=== PATIENT | female | born 1955 | race Caucasian/White ===

== ENCOUNTER 2017-02-21 21:40 | Emergency (ER) | payer OTHER ==
[~2017-02-21] VITALS: Ht 162.6 cm; Wt 74.8 kg
[~2017-02-21 21:40] MED LIST: ACET325T96 PO; PRED10TA PO
[2017-02-21 21:44] VITALS: TEMP 36.6; Ht 162.6 cm; Wt 74.8 kg
[2017-02-21] MEDS ORDERED: ALBUT/IPRATROP 3MG/0.5MG NEB 3 ML VIAL INH STA (23:03)
[2017-02-21] MEDS ORDERED: METHYLPREDNISOLONE 125 MG VIAL IV STA (23:03)
[2017-02-21 23:20] VITALS: PULSE 64; O2SAT 96
[2017-02-21 23:24] VITALS: O2SAT 98
[2017-02-21 23:45] LABS: BASO % 0.1 %; BASO ABS # 0.02 K/uL (0-0.2); COMPLETE YES; EOS % 0.2 %; HEMATOCRIT 44.5 % (37-47); IG% 0.3 %; LYMPH % 23.2 %; LYMPH ABS # 3.31 K/uL (1.2-3.4); MEAN CELL VOLUME 91.2 fL (80-100); MEAN CORPUSCULAR HEMOGLOBIN 29.7 pg (25-34); MEAN CORPUSCULAR HGB CONC 32.6 g/dl (32-36); MEAN PLATELET VOLUME 9.9 fL (7.4-10.4); MONO % 9.6 %; NEUT % 66.6 %; PLATELET COUNT 358 K/uL (130-400); RED BLOOD COUNT 4.88 M/uL (4.2-5.4); WHITE BLOOD COUNT 14.27 K/uL (4.8-10.8)
[2017-02-22] MEDS ORDERED: MONT1TAB5 PO (00:01)
[2017-02-22 00:09] LABS: INR 0.9 (0.9-1.1); PROTHROMBIN TIME (PATIENT) 9.8 SECONDS (9.0-12.0)
[2017-02-22 00:29] LABS: BLOOD UREA NITROGEN 13 mg/dl (7-18); BUN/CREATININE RATIO 14.6 (10-20); CALCIUM 8.4 mg/dl (8.5-10.1); CARBON DIOXIDE 27 mmol/L (21-32); CHLORIDE 108 mmol/L (98-107); CREATININE 0.87 mg/dl (0.60-1.20); GLUCOSE 98 mg/dl (70-99); POTASSIUM 4.1 mmol/L (3.5-5.1); SODIUM 141 mmol/L (136-145)
[2017-02-22 00:55] VITALS: BP 107/59; PULSE 98; O2SAT 98
--- NOTE | 2017-02-22 01:05 | EMERGENCY ROOM VISIT NOTE ---
History First contact with patient: 22:32 Chief Complaint: SHORTNESS OF BREATH Stated Complaint: SOB Nursing Triage Summary: c/o SOB. seen at PCP. No relief with steroids and inhalers History of Present Illness The patient is a 61 year old female who presents to the Emergency Room with complaints of shortness of breath. The patient states that she has had increased shortness of breath over the past 4-5 days. She has a history of atypical asthma and has occasional flareups of this. She reports that she has had increased shortness of breath with exertion, but at times does have shortness of breath at rest. She saw a provider and her primary care provider' s office 2 days ago who gave her an injection of 80 mg Solu-Medrol and a DuoNeb treatment. She was prescribed prednisone and Singulair which she has been taking as prescribed. She has been using nebulizers daily for the past 2 days. She states this feels similar to previous asthma flareups. She reports chest pressure, but states this has been ongoing for 2 days and is also normal for her asthma flareups. She also reports she has a history of autoimmune disease and previously took chronic steroids for several years. She denies chest pain. She denies cough or fevers. She reports a history of stroke. Review of Systems A complete 10 point review of systems was reviewed with the patient with pertinent positives and negatives as per history of present illness. All else were negative. Past Medical/Surgical History Medical Problems: (1) Asthma (2) Autoimmune disorder Social History Smoking Status: Never Smoker Alcohol Use: occasionally Marital Status: Housing Status: lives with family Current/Historical Medications Scheduled Montelukast Sodium (Montelukast Sodium), 10 MG PO DAILY Prednisone (Prednisone), 10 MG PO UD Scheduled PRN Acetaminophen Tab (Tylenol), 650 MG PO Q6 PRN for Pain or Fever Physical Exam Vital Signs Date Time Temp Pulse Resp B/P (MAP) Pulse Ox O2 Delivery O2 Flow Rate FiO2 02/22/17 00:55 98 18 107/59 98 Room Air 02/21/17 23:28 65 22 129/79 99 Nebulizer 02/21/17 23:24 98 02/21/17 23:20 64 16 96 Room Air 02/21/17 22:17 Room Air 02/21/17 22:07 75 02/21/17 21:44 36.6 68 22 138/82 96 Room Air Physical Exam VITALS: Vitals are noted on the nurse's note and reviewed by myself. Vital signs stable. GENERAL: This is a 61-year-old female, in no acute distress, nondiaphoretic, well-developed well-nourished. SKIN: The skin was without rashes. HEAD: Normocephalic atraumatic. EARS: External auditory canals clear, tympanic membranes pearly dunne without erythema or effusion bilaterally. EYES: Pupils equal round and reactive to light and accommodation. Conjunctivae without injection, sclerae without icterus. MOUTH: Mucous membranes moist. Tonsils are not enlarged. Pharynx without erythema or exudate. NECK: Supple without nuchal rigidity. No lymphadenopathy. HEART: Regular rate and rhythm without murmurs gallops or rubs. LUNGS: Breath sounds slightly decreased throughout all lung alba. No retractions or accessory muscle use. NEURO: Patient was alert and oriented to person place and time. Medical Decision & Procedures ER Provider Diagnostic Interpretation: CHEST X-RAY: No airspace consolidation. Cardiac silhouette normal. No bony abnormalities. Laboratory Results 02/21/17 23:20 Red Blood Count 4.88, Mean Corpuscular Volume 91.2, Mean Corpuscular Hemoglobin 29.7, Mean Corpuscular Hemoglobin Concent 32.6, Mean Platelet Volume 9.9, Neutrophils (%) (Auto) 66.6, Lymphocytes (%) (Auto) 23.2, Monocytes (%) (Auto) 9.6, Eosinophils (%) (Auto) 0.2, Basophils (%) (Auto) 0.1, Neutrophils # (Auto) 9.50, Lymphocytes # (Auto) 3.31, Monocytes # (Auto) 1.37, Eosinophils # (Auto) 0.03, Basophils # (Auto) 0.02 02/21/17 23:20 Test 02/21/17 23:20 White Blood Count 14.27 K/uL (4.8-10.8) Red Blood Count 4.88 M/uL (4.2-5.4) Hemoglobin 14.5 g/dL (12.0-16.0) Hematocrit 44.5 % (37-47) Mean Corpuscular Volume 91.2 fL (80-100) Mean Corpuscular Hemoglobin 29.7 pg (25-34) Mean Corpuscular Hemoglobin Concent 32.6 g/dl (32-36) Platelet Count 358 K/uL (130-400) Mean Platelet Volume 9.9 fL (7.4-10.4) Neutrophils (%) (Auto) 66.6 % Lymphocytes (%) (Auto) 23.2 % Monocytes (%) (Auto) 9.6 % Eosinophils (%) (Auto) 0.2 % Basophils (%) (Auto) 0.1 % Neutrophils # (Auto) 9.50 K/uL (1.4-6.5) Lymphocytes # (Auto) 3.31 K/uL (1.2-3.4) Monocytes # (Auto) 1.37 K/uL (0.11-0.59) Eosinophils # (Auto) 0.03 K/uL (0-0.5) Basophils # (Auto) 0.02 K/uL (0-0.2) RDW Standard Deviation 43.5 fL (36.4-46.3) RDW Coefficient of Variation 13.1 % (11.5-14.5) Immature Granulocyte % (Auto) 0.3 % Immature Granulocyte # (Auto) 0.04 K/uL (0.00-0.02) Prothrombin Time 9.8 SECONDS (9.0-12.0) Prothromb Time International Ratio 0.9 (0.9-1.1) Activated Partial Thromboplast Time 25.2 SECONDS (21.0-31.0) Partial Thromboplastin Ratio 1.0 D-Dimer < 190 ug/L FEU (0-500) Anion Gap 6.0 mmol/L (3-11) Est Creatinine Clear Calc Drug Dose 68.1 ml/min Estimated GFR () 83.9 Estimated GFR (Non- 72.4 BUN/Creatinine Ratio 14.6 (10-20) Calcium Level 8.4 mg/dl (8.5-10.1) Troponin I < 0.015 ng/ml (0-0.045) Medications Administered Medications (Trade) Dose Ordered Sig/Jt Route Start Time Stop Time Status Last Admin Dose Admin Methylprednisolone Sodium Succinate (Solu-Medrol IV) 125 mg NOW STAT IV 02/21/17 23:03 02/21/17 23:04 DC 02/21/17 23:24 125 MG Albuterol/ Ipratropium (Duoneb) 12 ml NOW STAT INH 8/30/17 23:03 02/21/17 23:04 DC 02/21/17 23:20 12 ML Medical Decision Differential diagnosis includes pneumonia, pneumothorax, pulmonary embolism, asthma exacerbation, malignancy, among others. The patient is a 61-year-old female who presents today complaining of shortness of breath. Patient has a history of asthma and states this is similar to previous flareups. Laboratory unremarkable. D-dimer is not elevated. Patient was treated with a DuoNeb treatment and 125 mg Solu-Medrol with significant relief of her symptoms. O2 sats word near 100%. She is afebrile and not tachycardic. She was instructed to continue the prednisone and follow up as needed. Based on the patient's presentation and work up, I feel the patient is stable for outpatient treatment. The patient was educated to return to the emergency department for any worsening of their current condition or new/concerning symptoms. She will follow up with her PCP. Medication Reconcilliation Current Medication List: was personally reviewed by me Blood Pressure Screening Patient's blood pressure: Normal blood pressure Impression Primary Impression: Shortness of breath Departure Information Dispostion Home / Self-Care Condition GOOD Referrals Randall Lara M.D. (PCP) Patient Instructions My [facility] Additional Instructions Continue your medications as prescribed. Follow-up with your primary care provider for further evaluation and treatment. Return to the emergency department with any worsening shortness of breath or other new/concerning symptoms.
--- NOTE | 2017-02-22 06:33 | DIAGNOSTIC IMAGING REPORT ---
CHEST 2 VIEWS ROUTINE CLINICAL HISTORY: Shortness of breath. COMPARISON STUDY: Chest radiograph and chest CT May 31, 2014. FINDINGS: Lung volumes are normal. No pneumothorax or pleural effusion was identified. Pulmonary vascularity is normal. There is no consolidation to suggest pneumonia. Cardiomediastinal silhouette is normal. The appearance of the chest is unchanged. IMPRESSION: No acute cardiopulmonary findings. Electronically signed by: David Stacy M.D. 02/22/2017 6:31 AM Dictated Date/Time: 02/22/2017 6:30 AM
== END 2017-02-22 01:18 | disposition home or self-care (01) ==
LOC: C.EDB 21:41 → C.EDA 02-22 01:18
DX: R06.02 Shortness of breath (principal); J45.909 Unspecified asthma, uncomplicated; M35.9 Systemic involvement of connective tissue, unspecified; Z79.899 Other long term (current) drug therapy

== ENCOUNTER 2017-07-11 12:06 | Observation (INO) | payer OTHER ==
[~2017-07-11] VITALS: Ht 162.6 cm; Wt 73.1 kg
[~2017-07-11 12:06] MED LIST changes: +MONT1TAB5 PO
[2017-07-11] MEDS ORDERED: VNTHFA/IN INH (12:29)
[2017-07-11] MEDS ORDERED: CETI10TA10 PO (12:29)
[2017-07-11] MEDS ORDERED: ONDANSETRON INJ 2 MG/ML 2 ML VIAL IV STA (12:44)
[2017-07-11] MEDS ORDERED: SODIUM CHLORIDE 0.9% 1000ML 1,000 ML IV STA (12:44)
[2017-07-11] MEDS: NITROGLYCERIN 0.4 MG SL PER TAB CHARGE SL PRN ×2 (12:57→14:27)
[2017-07-11 13:00] LABS: BASO % 0.5 %; BASO ABS # 0.04 K/uL (0-0.2); EOS % 1.4 %; EOS ABS # 0.11 K/uL (0-0.5); HEMATOCRIT 41.4 % (37-47); HEMOGLOBIN 13.8 g/dL (12.0-16.0); LYMPH % 40.4 %; LYMPH ABS # 3.09 K/uL (1.2-3.4); MEAN CELL VOLUME 91.8 fL (80-100); MEAN CORPUSCULAR HEMOGLOBIN 30.6 pg (25-34); MEAN CORPUSCULAR HGB CONC 33.3 g/dl (32-36); MEAN PLATELET VOLUME 10.2 fL (7.4-10.4); MONO % 8.9 %; MONO ABS # 0.68 K/uL (0.11-0.59); NEUT % 48.8 %; NEUT ABS # 3.73 K/uL (1.4-6.5); PLATELET COUNT 352 K/uL (130-400); RED CELL DISTRIBUTION WIDTH CV 13.1 % (11.5-14.5); RED CELL DISTRIBUTION WIDTH SD 43.8 fL (36.4-46.3); WHITE BLOOD COUNT 7.65 K/uL (4.8-10.8)
--- NOTE | 2017-07-11 13:12 | DIAGNOSTIC IMAGING REPORT ---
CHEST ONE VIEW PORTABLE CLINICAL HISTORY: Atypical chest pain COMPARISON STUDY: 02/21/2017 FINDINGS: The heart is normal in size. There is no failure. There is no lobar consolidation. There are no pleural effusions. There is no pneumothorax. Wispy left basilar opacities are likely atelectatic[ IMPRESSION: No active disease in the chest. Electronically signed by: Jignesh Lopez M.D. 07/11/2017 1:10 PM Dictated Date/Time: 07/11/2017 1:10 PM
[2017-07-11 13:22] LABS: ALT/SGPT 32 U/L (12-78); BLOOD UREA NITROGEN 10 mg/dl (7-18); CALCIUM 8.9 mg/dl (8.5-10.1); CARBON DIOXIDE 24 mmol/L (21-32); GLUCOSE 92 mg/dl (70-99); LIPASE 185 U/L (73-393); POTASSIUM 3.7 mmol/L (3.5-5.1); SODIUM 139 mmol/L (136-145)
[2017-07-11 13:28] LABS: ALKALINE PHOSPHATASE 58 U/L (45-117); AST/SGOT 30 U/L (15-37); CKMB 1.9 ng/ml (0.5-3.6); TOTAL PROTEIN 6.9 gm/dl (6.4-8.2)
[2017-07-11] MEDS ORDERED: ACETAMINOPHEN 325 MG TAB PO PRN (14:45)
[2017-07-11] MEDS ORDERED: ONDANSETRON INJ 2 MG/ML 2 ML VIAL IV PRN (14:45)
[2017-07-11] MEDS ORDERED: POLYETHYLENE (MIRALAX) 17 GM PACK PO PRN (14:45)
[2017-07-11 14:57] VITALS: O2SAT 95; Ht 162.6 cm; Wt 73.1 kg
[2017-07-11 15:11] VITALS: O2SAT 95
--- NOTE | 2017-07-11 15:24 | History and Physical ---
History & Physical Date & Time of Service: Jul 11, 2017 at 15:07 Chief Complaint: Chest Pain Primary Care Physician: Randall Lara M.D. History of Present Illness Source: patient This is a 61 yo F with PMHx of Lupus, mild asthma, recent GI flu which lasted 2 weeks and since has resolve, second hand smoke exposure as a child. Patient reports she was at work this morning around 10 AM and was sleeping outside walkway when she abruptly experienced substernal chest pain which radiated to her right shoulder, then radiated to the back between her shoulder blades. Patient notes that her pain lasted for only a few minutes, but felt a "generalized feeling of illness". She went inside and sat down, and reports having nausea, lightheadedness and feeling slightly dizzy which lasted one hour. The patient took 2 full dose aspirin, then had a coworker drive her to the ER. The patient has taken 2 nitroglycerin tablets which had significantly improved her pain since being in the ER. Patient reports her chest pain is currently resolved. She does report previously lupus flares have presented like this with a hoarser, and lower toned voice. She reports even with her mild asthma her lung typically are clear. Here in the ER, initial troponin is negative. EKG is without any findings of ischemia or ST wave inversions. Chest x-ray is without abnormal findings. All other labs are WNL. VSS. Past Medical/Surgical History Medical Problems: (1) Asthma (2) Autoimmune disorder (3) Chest pain (4) Lupus (systemic lupus erythematosus) Family History Father age 75 from COPD, chronic alcoholic Mother at age 69 from [place] Brother at age 41 from an [place] Social History Smoking Status: Never Smoker Smokeless Tobacco Use: No Alcohol Use: none Marital Status: Housing status: lives alone Occupational Status: employed Allergies Coded Allergies: Shellfish Allergy (Verified Allergy, Severe, ANAPHYLAXIS, 07/11/17) Iodine (Unverified Allergy, Unknown, ., 07/11/17) Codeine (Verified Adverse Reaction, Intermediate, nausea, 07/11/17) Home Medications Scheduled Cetirizine Hcl (Zyrtec), 10 MG PO DAILY Montelukast Sodium (Montelukast Sodium), 10 MG PO DAILY Scheduled PRN Albuterol Hfa (Ventolin Hfa), 2-4 PUFFS INH Q6H PRN for SOB/Wheezing Review of Systems Constitutional: No fever, sweats or chills Eyes: No diplopia, no worsening or blurred vision ENT: normal hearing, no trouble swallowing Respiratory: See history of present illness Cardiovascular: See history of present illness Abdomen: No pain, nausea, vomiting, diarrhea or constipation Musculoskeletal: No joint pain, calf pain, swelling Neurologic: No weakness, numbness/tingling, or balance problems Psychiatric: No anxiety or depression Skin: No rash or itch Physical Exam Vital Signs Date Time Temp Pulse Resp B/P (MAP) Pulse Ox O2 Delivery O2 Flow Rate FiO2 07/11/17 14:19 69 16 112/80 95 Room Air 07/11/17 13:07 72 16 131/76 96 Room Air 07/11/17 12:58 96 Room Air 07/11/17 12:28 77 07/11/17 12:26 98 Room Air 07/11/17 12:12 36.8 66 20 139/85 98 General: awake, alert, no apparent distress Head: Normocephalic, atraumatic ENT: PERRL, EOMI, no pharyngeal exudate, mucous membranes moist Chest: Clear to auscultation, on room air, no adventitious breath sounds Cardiac: No chest tenderness with palpation, Regular rate and rhythm, no murmur , no JVD, normal peripheral pulses, good capillary refill Abdominal: NABS x 4 quadrants, soft, nontender to palpation, no rebound, guarding or tenderness Extremities: Normal inspection, no peripheral edema or erythema, calfs nontender to palpation Psych: Normal mood and affect Neuro: AAO x 3, strength intact bilaterally and related 5/5, no motor deficits, speech is clear, no peripheral sensory deficits Diagnostics Laboratory Results Results Past 24 Hours Test 07/11/17 12:30 Range/Units White Blood Count 7.65 4.8-10.8 K/uL Red Blood Count 4.51 4.2-5.4 M/uL Hemoglobin 13.8 12.0-16.0 g/dL Hematocrit 41.4 37-47 % Mean Corpuscular Volume 91.8 80-100 fL Mean Corpuscular Hemoglobin 30.6 25-34 pg Mean Corpuscular Hemoglobin Concent 33.3 32-36 g/dl Platelet Count 352 130-400 K/uL Mean Platelet Volume 10.2 7.4-10.4 fL Neutrophils (%) (Auto) 48.8 % Lymphocytes (%) (Auto) 40.4 % Monocytes (%) (Auto) 8.9 % Eosinophils (%) (Auto) 1.4 % Basophils (%) (Auto) 0.5 % Neutrophils # (Auto) 3.73 1.4-6.5 K/uL Lymphocytes # (Auto) 3.09 1.2-3.4 K/uL Monocytes # (Auto) 0.68 0.11-0.59 K/uL Eosinophils # (Auto) 0.11 0-0.5 K/uL Basophils # (Auto) 0.04 0-0.2 K/uL RDW Standard Deviation 43.8 36.4-46.3 fL RDW Coefficient of Variation 13.1 11.5-14.5 % Immature Granulocyte % (Auto) 0.0 % Immature Granulocyte # (Auto) 0.00 0.00-0.02 K/uL Sodium Level 139 136-145 mmol/L Potassium Level 3.7 3.5-5.1 mmol/L Chloride Level 105 98-107 mmol/L Carbon Dioxide Level 24 21-32 mmol/L Anion Gap 10.0 3-11 mmol/L Blood Urea Nitrogen 10 7-18 mg/dl Creatinine 0.80 0.60-1.20 mg/dl Estimated GFR () 92.9 Estimated GFR (Non- 80.1 BUN/Creatinine Ratio 12.5 10-20 Random Glucose 92 70-99 mg/dl Calcium Level 8.9 8.5-10.1 mg/dl Total Bilirubin 0.3 0.2-1 mg/dl Direct Bilirubin < 0.1 0-0.2 mg/dl Aspartate Amino Transf (AST/SGOT) 30 15-37 U/L Alanine Aminotransferase (ALT/SGPT) 32 12-78 U/L Alkaline Phosphatase 58 45-117 U/L Total Creatine Kinase 59 26-192 U/L Creatine Kinase MB 1.9 0.5-3.6 ng/ml Creatine Kinase MB Ratio 3.2 0-3.0 Troponin I < 0.015 0-0.045 ng/ml Total Protein 6.9 6.4-8.2 gm/dl Albumin 4.0 3.4-5.0 gm/dl Lipase 185 73-393 U/L Diagnostic Radiology CHEST ONE VIEW PORTABLE CLINICAL HISTORY: Atypical chest pain COMPARISON STUDY: 02/21/2017 FINDINGS: The heart is normal in size. There is no failure. There is no lobar consolidation. There are no pleural effusions. There is no pneumothorax. Wispy left basilar opacities are likely atelectatic[ IMPRESSION: No active disease in the chest. Electronically signed by: Jignesh Lopez M.D. 07/11/2017 1:10 PM Dictated Date/Time: 07/11/2017 1:10 PM The status of this report is Signed. EKG Normal sinus rhythm Normal ECG When compared with ECG of 11-JUL-2017 12:56, (unconfirmed) No significant change was found Vent. rate 69 BPM RI interval 178 ms QRS duration 80 ms QT/QTc 406/435 ms P-R-T axes 48 20 41 Impression Assessment and Plan This is a 61 yo F with PMHx of Lupus, mild asthma, recent GI flu which lasted 2 weeks and since has resolve, second hand smoke exposure as a child. Patient reports she was at work this morning around 10 AM and was sleeping outside walkway when she abruptly experienced substernal chest pain which radiated to her right shoulder, then radiated to the back between her shoulder blades. Patient notes that her pain lasted for only a few minutes, but felt a "generalized feeling of illness". She went inside and sat down, and reports having nausea, lightheadedness and feeling slightly dizzy which lasted one hour. Chest pain, substernal and atypical - Admit to telemetry for observation - Initial troponin is negative, trending 2 more sets - Echo ordered, if all troponins are negative then stress echo in the morning - 1" Nitro paste ordered Q6H - EKGs reviewed as above and negative for any ST wave inversion or signs of ischemia - Patient has strong family history with mother who from [place] at age 69, and brother who at age 41 of [place] Systemic lupus erythematosus - Patient has been off chronic steroids 6 years, reports that since being postmenopausal her symptoms for lymphocytic significantly improved - Most recent flare was last fall she experienced worsening shortness of breath , chest tightness however this presentation is different. Mild asthma - Will try solumedrol 80 mcg now to assess response. Possible that this is an inflammatory response - will let the team to determine if further Solu-Medrol or prednisone taper should be continued. DVT PPI ask: Higinio SCDs, lovenox CODE STATUS: Full code Disposition: Patient from home, no needs anticipated i personally examined pt and verified all trujillo points w Robbie Willsleia PAC feeling like it relates to her asthma vitals noted nad breathing unlabored no pallor or icterus cp - fabiola asthma related, but w family hx r/o acs - enzymes, stress echo Level of Care Telemetry Resuscitation Status FULL RESUSCITATION VTE Prophylaxis VTE Risk Assessment Done? Y/N: Yes Risk Level: Low
[2017-07-11] MEDS ORDERED: IV FLUIDS COMPLETED PRN (15:30)
[2017-07-11 16:14] VITALS: BP 107/61; PULSE 72; TEMP 36.9; O2SAT 94
[2017-07-11] MEDS ORDERED: METHYLPREDNISOLONE IV 80 MG in SYRINGE 0 ML IV STA (16:34)
--- NOTE | 2017-07-11 17:37 | ECHOCARDIOGRAM REPORT ---
*NOTICE TO RECEIVING CONSTITUTION PARTY AGENCY This information is strictly Confidential and protected under [place] law. [place] law prohibits you from making any further disclosure of this information unless further disclosure is expressly permitted by the written consent of the person to whom it pertains or is authorized by law. A general authorization for the release of medical or other information is not sufficient for this purpose. Hospital accepts no responsibility if the information is made available to any other person, INCLUDING THE PATIENT. Interpretation Summary * Name: LA NENA KOHLI Study Date: 07/11/2017 03:03 PM BP: 112/80 mmHg * Patient Location: [facility] HR: 69 * : 1955 (M/d/yyyy) Gender: Female Height: 64 in * Age: 61 yrs Ethnicity: CA Weight: 163 lb * Ordering Physician: Stephanie Sow * Performed By: Joseph Boston RCS * * Reason For Study: CHEST PAIN * BSA: 1.8 m2 * -- Conclusions -- * 1. Normal LV size. Normal LV wall thickness. * 2. Normal LV systolic function. LVEF 60-65%. No regional wall motion abnormalities. * 3. Normal RV size and function. * 4. No significant valvular pathology. * 5. Normal estimated PA and RA pressures. * 6. No prior studies for comparison. Procedure Details * A complete two-dimensional transthoracic echocardiogram was performed (2D, M-mode, Doppler and color flow Doppler). Left Ventricle * The left ventricle is grossly normal size. * There is normal left ventricular wall thickness. * Ejection Fraction = 60-65%. Right Ventricle * The right ventricle is grossly normal size. * The right ventricular systolic function is normal as assessed by tricuspid annular plane systolic excursion (TAPSE) (normal >1.5 cm). Atria * The left atrial size is normal. * Right atrial size is normal. * No ASD detected; PFO is not assessed. Mitral Valve * The mitral valve is grossly normal. * There is no mitral valve stenosis. * Significant mitral regurgitation is absent. Tricuspid Valve * The tricuspid valve is not well visualized, but is grossly normal. * There is no tricuspid stenosis. * There is trace tricuspid regurgitation. Aortic Valve * The aortic valve opens well. * The aortic valve is trileaflet. * No hemodynamically significant valvular aortic stenosis. * There is no significant aortic regurgitation. Pulmonic Valve * The pulmonary valve is inadequately visualized, but the Doppler data is adequate for interpretation. * There is no pulmonic valvular stenosis. * There is no significant pulmonary regurgitation. Great Vessels * The aortic root and proximal ascending aorta are normal sized. * Normal inferior vena cava size and collapsability with sniff indicates a normal right atrial pressure of 3 mmHg MMode 2D Measurements and Calculations IVSd 0.98 cm IVSs 1.3 cm LVIDd 4.4 cm LVIDs 2.8 cm LVPWd 0.98 cm LVPWs 1.1 cm IVS/LVPW 1.0 FS 37.1 % EDV(Teich) 87.4 ml ESV(Teich) 28.6 ml EF(Teich) 67.3 % EDV(cubed) 84.9 ml ESV(cubed) 21.1 ml EF(cubed) 75.1 % % IVS thick 27.7 % % LVPW thick 11.8 % LV mass(C)d 144.4 grams LV mass(C)dI 80.5 grams/m\S\2 LV mass(C)s 94.9 grams LV mass(C)sI 52.9 grams/m\S\2 CO(Teich) 4.2 l/min CI(Teich) 2.3 l/min/m\S\2 SV(Teich) 58.8 ml SI(Teich) 32.8 ml/m\S\2 CO(cubed) 4.5 l/min CI(cubed) 2.5 l/min/m\S\2 SV(cubed) 63.8 ml SI(cubed) 35.6 ml/m\S\2 Ao root diam 3.1 cm Ao root area 7.5 cm\S\2 ACS 1.8 cm LA dimension 3.4 cm asc Aorta Diam 2.6 cm LA/Ao 1.1 LVAd ap4 29.2 cm\S\2 LVLd ap4 7.9 cm EDV(MOD-sp4) 89.9 ml LVAs ap4 12.9 cm\S\2 LVLs ap4 6.0 cm ESV(MOD-sp4) 25.5 ml EF(MOD-sp4) 71.6 % LVAd ap2 29.7 cm\S\2 LVLd ap2 8.1 cm EDV(MOD-sp2) 93.0 ml LVAs ap2 12.5 cm\S\2 LVLs ap2 6.0 cm ESV(MOD-sp2) 23.6 ml EF(MOD-sp2) 74.6 % CO(MOD-sp4) 4.6 l/min CI(MOD-sp4) 2.5 l/min/m\S\2 SV(MOD-sp4) 64.4 ml SI(MOD-sp4) 35.9 ml/m\S\2 CO(MOD-sp2) 4.9 l/min CI(MOD-sp2) 2.7 l/min/m\S\2 SV(MOD-sp2) 69.4 ml SI(MOD-sp2) 38.7 ml/m\S\2 Doppler Measurements and Calculations MV E max silvio 99.4 cm/sec MV A max silvio 76.6 cm/sec MV E/A 1.3 MV P1/2t max silvio 99.9 cm/sec MV P1/2t 58.5 msec MVA(P1/2t) 3.8 cm\S\2 MV dec slope 500.5 cm/sec\S\2 MV dec time 0.17 sec Ao V2 max 120.2 cm/sec Ao max PG 5.8 mmHg Ao max PG (full) 1.7 mmHg LV V1 max PG 4.1 mmHg LV V1 max 100.6 cm/sec PA V2 max 95.6 cm/sec PA max PG 3.7 mmHg TR max silvio 267.4 cm/sec
--- NOTE | 2017-07-11 19:00 | EMERGENCY ROOM VISIT NOTE ---
History Report prepared by Renee: Ted Mcleod Under the Supervision of: Dr. Jeremiah Davison D.O. 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 She states that she was shoveling snow outside of her place of work, when she suddenly began to experience chest pain and a heaviness feeling. She notes the pain radiated to her right shoulder. She currently feels a sharp pain with lingering pressure. She currently rates her pain a 6/10 in severity. She denies any left arm pain, or jaw pain. She states that she felt dizzy, short of breath, and nauseous. She took regular sized aspirin while at work this morning. The patient notes that she has recently gotten over the flu. Patient denies diabetes , hypertension, hyperlipidemia, CAD, family history of sudden at a young age, and smoking. She notes a family history CAD. She has a history of blood clots. She states that she was on blood thinners for five years, though she is no longer taking them. She has a history of Ann's Palsy. Patient denies swelling of calves, recent trips, history of immobilization or recent surgery, prior history of DVT, hemoptysis, history of malignancy, history of smoking, or control/estrogen use. Source of History: patient Onset: 929 morning Position: chest Symptom Intensity: 6/10 Quality: sharp Timing: other (persistent) Associated Symptoms: + SOB, + nausea Note: She notes chest pain with heaviness, right shoulder pain, and dizziness. She denies any left arm pain or jaw pain. Review of Systems See HPI for pertinent positives & negatives. A total of 10 systems reviewed and were otherwise negative. Past Medical & Surgical Medical Problems: (1) Asthma (2) Asthma (3) Autoimmune disorder (4) Chest pain (5) Lupus (systemic lupus erythematosus) Family History Heart disease Social History Smoking Status: Never Smoker Smokeless Tobacco Use: No Alcohol Use: occasionally Drug Use: none Marital Status: Housing Status: lives with family Occupation Status: employed Current/Historical Medications Scheduled Cetirizine Hcl (Zyrtec), 10 MG PO DAILY Montelukast Sodium (Montelukast Sodium), 10 MG PO DAILY Scheduled PRN Albuterol Hfa (Ventolin Hfa), 2-4 PUFFS INH Q6H PRN for SOB/Wheezing Allergies Coded Allergies: Shellfish Allergy (Verified Allergy, Severe, ANAPHYLAXIS, 07/11/17) Iodine (Unverified Allergy, Unknown, ., 07/11/17) Codeine (Verified Adverse Reaction, Intermediate, nausea, 07/11/17) Physical Exam Vital Signs Date Time Temp Pulse Resp B/P (MAP) Pulse Ox O2 Delivery O2 Flow Rate FiO2 07/11/17 14:19 69 16 112/80 95 Room Air 07/11/17 13:07 72 16 131/76 96 Room Air 07/11/17 12:58 96 Room Air 07/11/17 12:28 77 07/11/17 12:26 98 Room Air 07/11/17 12:12 36.8 66 20 139/85 98 Physical Exam GENERAL: Sitting up in bed, alert, well appearing, well nourished, no distress, non-toxic EYE EXAM: normal conjunctiva. OROPHARYNX: no exudate, no erythema, lips, buccal mucosa, and tongue normal and mucous membranes are moist NECK: supple, no nuchal rigidity, no adenopathy, non-tender LUNGS: Clear to auscultation. Normal chest wall mechanics HEART: no murmurs, S1 normal and S2 normal ABDOMEN: abdomen soft, non-tender, normo-active bowel sounds, no masses, no rebound or guarding. BACK: Back is symmetrical on inspection and there is no deformity, no midline tenderness, no CVA tenderness. SKIN: no rashes and no bruising UPPER EXTREMITIES: upper extremities are grossly normal. LOWER EXTREMITIES: No pitting edema. Calves are equal and bilateral NEURO EXAM: Normal sensorium, cranial nerves II-XII grossly intact, normal speech, no gross weakness of arms, no gross weakness of legs. Medical Decision & Procedures ER Provider Diagnostic Interpretation: Radiology results as stated below per my review and the radiologist's interpretation: CHEST ONE VIEW PORTABLE CLINICAL HISTORY: Atypical chest pain COMPARISON STUDY: 02/21/2017 FINDINGS: The heart is normal in size. There is no failure. There is no lobar consolidation. There are no pleural effusions. There is no pneumothorax. Wispy left basilar opacities are likely atelectatic[ IMPRESSION: No active disease in the chest. Electronically signed by: Jignesh Lopez M.D. 07/11/2017 1:10 PM Dictated Date/Time: 07/11/2017 1:10 PM Laboratory Results 07/11/17 12:30 Red Blood Count 4.51, Mean Corpuscular Volume 91.8, Mean Corpuscular Hemoglobin 30.6, Mean Corpuscular Hemoglobin Concent 33.3, Mean Platelet Volume 10.2, Neutrophils (%) (Auto) 48.8, Lymphocytes (%) (Auto) 40.4, Monocytes (%) (Auto) 8.9, Eosinophils (%) (Auto) 1.4, Basophils (%) (Auto) 0.5, Neutrophils # (Auto) 3.73, Lymphocytes # (Auto) 3.09, Monocytes # (Auto) 0.68, Eosinophils # (Auto) 0.11, Basophils # (Auto) 0.04 07/11/17 12:30 Test 07/11/17 12:30 White Blood Count 7.65 K/uL (4.8-10.8) Red Blood Count 4.51 M/uL (4.2-5.4) Hemoglobin 13.8 g/dL (12.0-16.0) Hematocrit 41.4 % (37-47) Mean Corpuscular Volume 91.8 fL (80-100) Mean Corpuscular Hemoglobin 30.6 pg (25-34) Mean Corpuscular Hemoglobin Concent 33.3 g/dl (32-36) Platelet Count 352 K/uL (130-400) Mean Platelet Volume 10.2 fL (7.4-10.4) Neutrophils (%) (Auto) 48.8 % Lymphocytes (%) (Auto) 40.4 % Monocytes (%) (Auto) 8.9 % Eosinophils (%) (Auto) 1.4 % Basophils (%) (Auto) 0.5 % Neutrophils # (Auto) 3.73 K/uL (1.4-6.5) Lymphocytes # (Auto) 3.09 K/uL (1.2-3.4) Monocytes # (Auto) 0.68 K/uL (0.11-0.59) Eosinophils # (Auto) 0.11 K/uL (0-0.5) Basophils # (Auto) 0.04 K/uL (0-0.2) RDW Standard Deviation 43.8 fL (36.4-46.3) RDW Coefficient of Variation 13.1 % (11.5-14.5) Immature Granulocyte % (Auto) 0.0 % Immature Granulocyte # (Auto) 0.00 K/uL (0.00-0.02) Anion Gap 10.0 mmol/L (3-11) Estimated GFR () 92.9 Estimated GFR (Non- 80.1 BUN/Creatinine Ratio 12.5 (10-20) Calcium Level 8.9 mg/dl (8.5-10.1) Total Bilirubin 0.3 mg/dl (0.2-1) Direct Bilirubin < 0.1 mg/dl (0-0.2) Aspartate Amino Transf (AST/SGOT) 30 U/L (15-37) Alanine Aminotransferase (ALT/SGPT) 32 U/L (12-78) Alkaline Phosphatase 58 U/L (45-117) Total Creatine Kinase 59 U/L (26-192) Creatine Kinase MB 1.9 ng/ml (0.5-3.6) Creatine Kinase MB Ratio 3.2 (0-3.0) Troponin I < 0.015 ng/ml (0-0.045) Total Protein 6.9 gm/dl (6.4-8.2) Albumin 4.0 gm/dl (3.4-5.0) Lipase 185 U/L (73-393) Laboratory results per my review. Medications Administered Medications (Trade) Dose Ordered Sig/Jt Route Start Time Stop Time Status Last Admin Dose Admin Nitroglycerin (Nitrostat Tab) 0.4 mg Q5M PRN SL 07/11/17 12:45 07/11/17 16:34 DC 07/11/17 14:27 0.4 MG Sodium Chloride 1,000 ml @ 999 mls/hr Q1H1M STAT IV 07/11/17 12:44 07/11/17 13:44 DC 07/11/17 12:57 999 MLS/HR Ondansetron HCl (Zofran Inj) 4 mg NOW STAT IV 07/11/17 12:44 07/11/17 12:46 DC 07/11/17 12:57 4 MG ECG Indication: chest pain Rate (beats per minute): 76 Rhythm: sinus rhythm Findings: nonspecific-ST abn (Anterior), other ( poor baseline in anteriorly and laterally. normal intervals. normal axis) Change: 2nd ECG: Sinus Rhythm at 82 bpm Findings: no acute ischemic changes, no ectopy, and normal axis. 3rd ECG: Normal Sinus Rhythm at 69 bpm Findings: Normal axis. No ectopy. Slight elevation in Lead 2 ED Course ED COURSE: Vital signs were reviewed and showed normal. The patients medical record was reviewed The above diagnostic studies were performed and reviewed. ED treatments and interventions as stated above. 1237: The patient was evaluated in room A3. A complete history and physical examination was performed. 1244: Ordered Zofran 4 mg IV and Sodium Chloride 1,000 ml @ 999 mls/hr IV 1245: Ordered Nitroglycerin 0.4 mg SL 1310: I reassessed the patient at this time. The patient's chest pain resolved with nitroglycerin. 1345: I spoke with Dr. Proctor, hospitalist. We discussed the patients case. The patient will be evaluated by the [facility] for further management. 1348: I reassessed the patient at this time. I updated the patient and her daughter. 1422: The patient's chest pain is starting to come back. I ordered another ECG. 1426: Upon reevaluation, the patient' s chest pain went away with nitroglycerin. I discussed my findings with the patient and she understands and agrees with the treatment plan. Based on the patients age, coexisting illnesses, exam and lab findings the decision to treat as an inpatient was made. The patient remained stable while under my care. The patient will be evaluated for further management. Medical Decision Differential diagnoses includes but is not limited to acute coronary syndrome, myocardial infarction, pericarditis, pulmonary embolus, aortic dissection, pneumonia, pneumothorax, musculoskeletal, shingles, esophageal. Patient is a 61-year-old female who presents to ER for chest pain which occurred will shoveling snow. She described it as a sharp stabbing pain and heaviness. It was associated with shortness of breath and right arm pain. It improved with rest but did not resolve. She admits to nausea. It started around 9:30 today. No previous cardiac symptoms. Family history of ND. Chest x-ray and troponin were unremarkable. EKG was benign. She was given nitroglycerin with resolution of her symptoms. She had previous a taken aspirin. Chest pain recurred once throughout the stay and was given additional nitroglycerin. This again resolved. There is no change in the second EKG. Patient was admitted to internal medicine for further workup and observation. Medication Reconcilliation Current Medication List: was personally reviewed by me Blood Pressure Screening Patient's blood pressure: Normal blood pressure Consults Time Called: [id number] Consulting Physician: Dr. Proctor, hospitalist I spoke with Dr. Proctor, hospitalist. We discussed the patients case. The patient will be evaluated by the [facility] for further management. Impression Primary Impression: Exertional chest pain Scribe Attestation The scribe's documentation has been prepared under my direction and personally reviewed by me in its entirety. I confirm that the note above accurately reflects all work, treatment, procedures, and medical decision making performed by me. Departure Information Dispostion Being Evaluated By Hospitalist Referrals Randall Lara M.D. (PCP) Patient Instructions My [facility]
[2017-07-11 20:00] VITALS: BP 109/61; PULSE 76; TEMP 37.1; O2SAT 94
[2017-07-11] MEDS ORDERED: NITROGLYCERIN 0.4 MG SL PER TAB CHARGE ONE (20:13)
[2017-07-11 23:50] VITALS: BP 108/59; PULSE 80; TEMP 37; O2SAT 93
[2017-07-12 04:00] VITALS: BP 110/64; PULSE 73; O2SAT 92
[2017-07-12 04:35] LABS: HEMATOCRIT 37.9 % (37-47); HEMOGLOBIN 12.8 g/dL (12.0-16.0); IG# 0.02 K/uL (0.00-0.02); LYMPH % 13.8 %; LYMPH ABS # 1.42 K/uL (1.2-3.4); MEAN CELL VOLUME 91.3 fL (80-100); MEAN CORPUSCULAR HEMOGLOBIN 30.8 pg (25-34); MEAN CORPUSCULAR HGB CONC 33.8 g/dl (32-36); MONO ABS # 0.31 K/uL (0.11-0.59); NEUT ABS # 8.53 K/uL (1.4-6.5); PLATELET COUNT 311 K/uL (130-400); RED CELL DISTRIBUTION WIDTH CV 12.7 % (11.5-14.5); RED CELL DISTRIBUTION WIDTH SD 42.7 fL (36.4-46.3); WHITE BLOOD COUNT 10.28 K/uL (4.8-10.8)
[2017-07-12 04:59] LABS: BLOOD UREA NITROGEN 10 mg/dl (7-18); CALCIUM 8.6 mg/dl (8.5-10.1); CARBON DIOXIDE 26 mmol/L (21-32); CHOLESTEROL 171 mg/dl (0-200); CREATININE 0.88 mg/dl (0.60-1.20); GLUCOSE 115 mg/dl (70-99); LDL CHOLESTEROL CALCULATED 102 mg/dl; POTASSIUM 4.4 mmol/L (3.5-5.1); SODIUM 139 mmol/L (136-145)
[2017-07-12 06:39] LABS: HEMOGLOBIN A1C 5.9 % (4.5-5.6)
[2017-07-12 08:24] VITALS: BP 116/73; PULSE 87; TEMP 36.8; O2SAT 96
[2017-07-12] MEDS ORDERED: CETIRIZINE HCL 10 MG TAB PO SCH (09:00)
[2017-07-12] MEDS ORDERED: MONTELUKAST SOD 10 MG TAB PO SCH (09:00)
--- NOTE | 2017-07-12 10:45 | Cardiology Consultation ---
Cardiology Consultation Date of Consultation: Jul 12, 2017. Requesting Physician: Terra Reason for Consultation: Chest Pain Pt evaluation today including: conversation w/ patient, physical exam, chart review, lab review, review of studies, review of inpatient medication list, conversation w/ attending History of Present Illness Patient is a 61-year-old woman without any history of cardiac disease who experienced an episode of chest discomfort yesterday. Patient states that she was shoveling some snow when she began to experience left-sided chest discomfort. This generalized to include most of the precordium. Initially was not associated with other symptoms but later she did develop some sharp right scapular pain. She had minimal dyspnea at that time. She did not feel well overall. Based on the prolonged and unusual nature of her symptoms she eventually sought medical attention at [facility]. She feels that the episode itself lasted an hour to an hour and a half. It eventually resolved and she has not had any return of the symptoms. She now has an element of dyspnea and hoarseness in her voice. She states this is more typical for an asthma exacerbation. She occasionally has some chest discomfort associated with asthma exacerbation but this time her symptoms are more severe and different. In general she is an active individual was accustomed to walking to work and performing light exercise. She is not perform regular vigorous exercise. However, she does not have any exertional symptoms such as dyspnea or chest pains. She denies any orthopnea or paroxysmal nocturnal dyspnea. She has occasional dizziness associated with asthma exacerbation of generally not at other times. She has not had syncope recently. She is not aware of any palpitations or racing heartbeats. 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 Review of Systems Per HPI. Patient did report having the flu recently. All Other Systems: Reviewed and Negative Allergies Coded Allergies: Shellfish Allergy (Verified Allergy, Severe, ANAPHYLAXIS, 07/11/17) Iodine (Unverified Allergy, Unknown, ., 07/11/17) Codeine (Verified Adverse Reaction, Intermediate, nausea, 07/11/17) Medications Current Inpatient Medications Medications (Trade) Dose Ordered Sig/Jt Route Start Time Stop Time Status Last Admin Dose Admin Acetaminophen (Tylenol Tab) 650 mg Q4H PRN PO 07/11/17 14:45 08/10/17 14:44 Ondansetron HCl (Zofran Inj) 4 mg Q6H PRN IV 07/11/17 14:45 08/10/17 14:44 Polyethylene (Miralax Powder Packet) 17 gm DAILY PRN PO 07/11/17 14:45 08/10/17 14:44 Cetirizine HCl (zyrTEC TAB) 10 mg DAILY PO 07/12/17 09:00 08/11/17 08:59 07/12/17 08:23 10 MG Montelukast Sodium (Singulair Tab) 10 mg DAILY PO 07/12/17 09:00 08/11/17 08:59 07/12/17 08:23 10 MG Miscellaneous (Iv Fluids Completed) 1 ea PRN PRN N/A 07/11/17 15:30 07/11/18 15:29 Physical Exam Vital Signs Past 12 Hours Date Time Temp Pulse Resp B/P (MAP) Pulse Ox O2 Delivery O2 Flow Rate FiO2 07/12/17 08:24 36.8 87 18 116/73 (87) 96 07/12/17 08:00 Room Air 07/12/17 04:00 Room Air 07/12/17 04:00 73 16 110/64 (79) 92 Room Air 07/11/17 23:50 Room Air 07/11/17 23:50 37.0 80 18 108/59 (75) 93 Room Air She is alert and oriented x3. Mood affect appear normal. She answered all questions appropriately. Voice was somewhat hoarse HEENT: Sclerae are anicteric. Pupils are equal and reactive to light and accommodation. Extraocular movements were intact. Neuro: Cranial nerves intact Neck: Examination of the submandibular region did not reveal any significant lymphadenopathy. Carotids are palpable bilaterally and free of bruits on auscultation. There was no evidence of jugular venous distention. The thyroid was not enlarged. Lungs: Lungs are clear to auscultation bilaterally. There are no rales wheezes or rhonchi. She has normal respiratory effort without use of accessory muscles. There is normal pulmonary excursion. Cardiac: The rhythm was regular. S1 and S2 were normal. There are no murmurs on examination. The PMI was not markedly displaced on palpation. Abdomen: The abdomen was soft and nontender. Extremities: Patient has bilateral radial pulses that are equal in intensity. There is no evidence cyanosis or clubbing. There was no evidence of significant peripheral edema bilaterally. Skin: There are no rashes noted on examination today. Data Laboratory Results: Last 24 Hours Test 07/11/17 12:30 07/11/17 20:25 07/12/17 04:21 07/12/17 04:23 White Blood Count 7.65 K/uL 10.28 K/uL Red Blood Count 4.51 M/uL 4.15 M/uL Hemoglobin 13.8 g/dL 12.8 g/dL Hematocrit 41.4 % 37.9 % Mean Corpuscular Volume 91.8 fL 91.3 fL Mean Corpuscular Hemoglobin 30.6 pg 30.8 pg Mean Corpuscular Hemoglobin Concent 33.3 g/dl 33.8 g/dl Platelet Count 352 K/uL 311 K/uL Mean Platelet Volume 10.2 fL 10.0 fL Neutrophils (%) (Auto) 48.8 % 83.0 % Lymphocytes (%) (Auto) 40.4 % 13.8 % Monocytes (%) (Auto) 8.9 % 3.0 % Eosinophils (%) (Auto) 1.4 % 0.0 % Basophils (%) (Auto) 0.5 % 0.0 % Neutrophils # (Auto) 3.73 K/uL 8.53 K/uL Lymphocytes # (Auto) 3.09 K/uL 1.42 K/uL Monocytes # (Auto) 0.68 K/uL 0.31 K/uL Eosinophils # (Auto) 0.11 K/uL 0.00 K/uL Basophils # (Auto) 0.04 K/uL 0.00 K/uL RDW Standard Deviation 43.8 fL 42.7 fL RDW Coefficient of Variation 13.1 % 12.7 % Immature Granulocyte % (Auto) 0.0 % 0.2 % Immature Granulocyte # (Auto) 0.00 K/uL 0.02 K/uL Sodium Level 139 mmol/L 139 mmol/L Potassium Level 3.7 mmol/L 4.4 mmol/L Chloride Level 105 mmol/L 108 mmol/L Carbon Dioxide Level 24 mmol/L 26 mmol/L Anion Gap 10.0 mmol/L 5.0 mmol/L Blood Urea Nitrogen 10 mg/dl 10 mg/dl Creatinine 0.80 mg/dl 0.88 mg/dl Estimated GFR () 92.9 82.8 Estimated GFR (Non- 80.1 71.4 BUN/Creatinine Ratio 12.5 11.2 Random Glucose 92 mg/dl 115 mg/dl Calcium Level 8.9 mg/dl 8.6 mg/dl Total Bilirubin 0.3 mg/dl Direct Bilirubin < 0.1 mg/dl Aspartate Amino Transf (AST/SGOT) 30 U/L Alanine Aminotransferase (ALT/SGPT) 32 U/L Alkaline Phosphatase 58 U/L Total Creatine Kinase 59 U/L Creatine Kinase MB 1.9 ng/ml Creatine Kinase MB Ratio 3.2 Troponin I < 0.015 ng/ml < 0.015 ng/ml < 0.015 ng/ml Total Protein 6.9 gm/dl Albumin 4.0 gm/dl Lipase 185 U/L Est Creatinine Clear Calc Drug Dose 67.0 ml/min Triglycerides Level 47 mg/dl Cholesterol Level 171 mg/dl HDL Cholesterol 60 mg/dl LDL Cholesterol, Calculated 102 mg/dl VLDL Cholesterol, Calculated 9 mg/dl Cholesterol/HDL Ratio 2.9 Estimated Average Glucose 123 mg/dl Hemoglobin A1c 5.9 % Imaging: Chest x-ray did not demonstrate any acute cardiopulmonary disease EKG: Normal sinus rhythm. Normal EKG Telemetry reviewed: No significant arrhythmia Echocardiogram performed 07/11/2017: Normal LV systolic function. No valvular heart disease. Normal echocardiogram Assessment & Plan 1. Chest pain: Patient's symptoms of chest pain are concerning in that they were precordial and of appropriate character for coronary ischemia. However, all of her objective findings are normal. Despite a prolonged episode of chest discomfort there was no elevation in her biomarkers. Her EKG is entirely normal. Her echocardiogram is also normal without wall motion abnormalities. I think the more likely explanation is an exacerbation of her known asthma. Stress testing was ordered today but I think her pulmonary status precludes exercising at this point. Standard treadmill exercise testing can be deferred to the outpatient setting. Additional recommendations would include standard cardiac risk factor modification according to published guidelines.
[2017-07-12 11:42] VITALS: BP 116/75; PULSE 86; TEMP 36.9; O2SAT 95
--- NOTE | 2017-07-12 12:55 | Discharge Summary ---
Discharge Summary Date of Service Jul 12, 2017. Discharge Summary Admission Date: Jul 11, 2017 at 14:44 Problems/Secondary Diagnoses: (1) Asthma Status: Chronic (2) Autoimmune disorder Status: Chronic Hospital Course This includes examination of the patient, discharge planning, medication reconciliation, and communication with other providers. Discharge Instructions Please refer to the electronic Patient Visit Report (Discharge Instructions) for additional information.
[2017-07-12] MEDS ORDERED: AZIT-57 PO (13:11)
[2017-07-12] MEDS ORDERED: PRD10 PO (13:11)
[2017-07-12] MEDS ORDERED: AZITHROMYCIN 250 MG TAB PO ONE (13:15)
[2017-07-12] MEDS ORDERED: METHYLPREDNISOLONE IV 40 MG in SYRINGE 0 ML IV ONE (13:15)
--- NOTE | 2017-07-12 13:22 | Discharge Instructions ---
Discharge Instructions Date of Service Jul 12, 2017. Admission Reason for Admission: Chest Pain Discharge Discharge Diagnosis / Problem: Atypical Asthma Discharge Goals Goal(s): Decrease discomfort, Improve function Activity Recommendations Activity Limitations: resume your previous activity . Instructions / Follow-Up Instructions / Follow-Up Followup with PCP in 1-2 weeks. Start antibiotics tomorrow for 4 more days. First dose given at hospital. Start prednisone tomorrow. Current Hospital Diet Patient's current hospital diet: AHA Diet (Heart Healthy) Discharge Diet Recommended Diet: AHA Diet (Heart Healthy) Pending Studies Studies pending at discharge: no Laboratory Results Hemoglobin A1c Test 07/12/17 04:23 Range/Units Estimated Average Glucose 123 mg/dl Hemoglobin A1c 5.9 H 4.5-5.6 % Lipid Panel Test 07/12/17 04:21 Range/Units Triglycerides Level 47 0-150 mg/dl Cholesterol Level 171 0-200 mg/dl HDL Cholesterol 60 mg/dl Cholesterol/HDL Ratio 2.9 LDL Cholesterol, Calculated 102 mg/dl Medical Emergencies . Who to Call and When: Medical Emergencies: If at any time you feel your situation is an emergency, please call 911 immediately. . Non-Emergent Contact Non-Emergency issues call your: Primary Care Provider Call Non-Emergent contact if: you have any medication questions (if SOB worsens ) . . "Provider Documentation" section prepared by Anthony Ellison. . VTE Core Measure Inpt VTE Proph given/why not?: Treatment not indicated (short hospital stay)
[2017-07-12 13:54] VITALS: BP 116/75; PULSE 86; TEMP 36.9; O2SAT 95
== END 2017-07-12 14:11 | disposition home or self-care (01) ==
LOC: C.EDB 12:07 → C.2T 14:44 → ENRESERV 14:55
PROVIDERS: ADMIT Family Medicine; ATTEND Family Medicine
DX: J45.909 Unspecified asthma, uncomplicated (principal); M32.9 Systemic lupus erythematosus, unspecified; D89.89 Other specified disorders involving the immune mechanism, not elsewhere classified; E78.1 Pure hyperglyceridemia; Z86.711 Personal history of pulmonary embolism; Z82.49 Family history of ischemic heart disease and other diseases of the circulatory system; Z79.899 Other long term (current) drug therapy; Z83.6 Family history of other diseases of the respiratory system

== ENCOUNTER → 2017-08-14 | Outpatient (CLI) | payer OTHER ==
[~2017-08-14] MED LIST changes: -ACET325T96 PO; +AZIT-57 PO; +CETI10TA10 PO; +PRD10 PO; -PRED10TA PO; +VNTHFA/IN INH
--- NOTE | 2017-08-14 14:14 | DIAGNOSTIC IMAGING REPORT ---
(CHEST) THORAX WITHOUT CT DOSE: 207.60 mGy.cm HISTORY: Dyspnea M35.1 Mixed connective tissue diseaseRepeated full inspiration a TECHNIQUE: Multiaxial CT images of the chest were performed without contrast. A dose lowering technique was utilized adhering to the principles of ALARA. COMPARISON: 05/31/2014 FINDINGS: The lungs are clear. Slight peribronchial thickening. The mediastinal vascular structures are within normal limits. No mediastinal or hilar lymphadenopathy. No pleural effusion or pneumothorax. Limited views of the upper abdomen demonstrate a normal liver and spleen. IMPRESSION: No acute process. Slight peribronchial thickening. The above report was generated using voice recognition software. It may contain grammatical, syntax or spelling errors. Electronically signed by: Jan Hi M.D. 08/14/2017 2:12 PM Dictated Date/Time: 08/14/2017 2:10 PM
--- NOTE | 2017-08-14 14:44 | DIAGNOSTIC IMAGING REPORT ---
L TOE(S) MIN 2 VIEWS, L FOOT MIN 3 VIEWS ROUTINE CLINICAL HISTORY: M79.676 Toe pain left great [id number] COMPARISON STUDY: None. FINDINGS: 3 views of the left foot and 3 views of the left first toe. No fracture or dislocation within the left foot or left first toe. Mild osteoarthritis at the first MTP joint and within the interphalangeal joints of the toes. Soft tissue and bony bunion. Plantar and posterior calcaneal spurs. There is also mild to moderate osteoarthritis at the sesamoid bones at the head of the first metatarsal. IMPRESSION: 1. Soft tissue and bony bunion. 2. No fracture or dislocation within the left foot or left first toe. 3. Degenerative changes as described above. Electronically signed by: Jaxson Stanton M.D. 08/14/2017 2:43 PM Dictated Date/Time: 08/14/2017 2:38 PM
--- NOTE | 2017-08-14 14:44 | DIAGNOSTIC IMAGING REPORT ---
L TOE(S) MIN 2 VIEWS, L FOOT MIN 3 VIEWS ROUTINE CLINICAL HISTORY: M79.676 Toe pain left great [id number] COMPARISON STUDY: None. FINDINGS: 3 views of the left foot and 3 views of the left first toe. No fracture or dislocation within the left foot or left first toe. Mild osteoarthritis at the first MTP joint and within the interphalangeal joints of the toes. Soft tissue and bony bunion. Plantar and posterior calcaneal spurs. There is also mild to moderate osteoarthritis at the sesamoid bones at the head of the first metatarsal. IMPRESSION: 1. Soft tissue and bony bunion. 2. No fracture or dislocation within the left foot or left first toe. 3. Degenerative changes as described above. Electronically signed by: Jaxson Stanton M.D. 08/14/2017 2:43 PM Dictated Date/Time: 08/14/2017 2:38 PM
[2017-08-14 16:43] LABS: ALBUMIN 4.1 gm/dl (3.4-5.0); ALT/SGPT 38 U/L (12-78); AST/SGOT 32 U/L (15-37); BLOOD UREA NITROGEN 14 mg/dl (7-18); CARBON DIOXIDE 27 mmol/L (21-32); GLUCOSE 82 mg/dl (70-99); POTASSIUM 3.8 mmol/L (3.5-5.1); SODIUM 139 mmol/L (136-145); URIC ACID 5.2 mg/dl (2.6-7.2)
[2017-08-14 16:54] LABS: ALKALINE PHOSPHATASE 59 U/L (45-117); TOTAL PROTEIN 7.3 gm/dl (6.4-8.2)
[2017-08-15 06:07] LABS: HEMOGLOBIN A1C 5.9 % (4.5-5.6)
[2017-08-19 23:59] LABS: BORDETELLA PERTUSSIS FHA IGA 65 IU/mL; BORDETELLA PERTUSSIS FHA IGG 34 IU/mL; BORDETELLA PERTUSSIS PT IGG 10 IU/mL
== END | disposition home or self-care (01) ==
LOC: C.CTS 13:41
PROVIDERS: ATTEND Internal Medicine Critical Care Medicine
DX: M79.676 Pain in unspecified toe(s) (principal)

== ENCOUNTER → 2017-09-21 | Outpatient (CLI) | payer OTHER ==
--- NOTE | 2017-09-21 16:55 | MYOCARDIAL PERFUSION SCAN ---
STUDY REQUESTED BY: Dr. Russo. PRIMARY CARE PROVIDER: Dr. Randall Lara. STUDY TITLE: ONE-DAY NUCLEAR MEDICINE TECHNETIUM-99M CARDIOLITE MYOCARDIAL PERFUSION SCAN. HISTORY: Atypical chest pain and shortness of breath. ECHOCARDIOGRAM: Shows normal sinus rhythm, ventricular rate of [address] abnormalities. STRESS ECHOCARDIOGRAM: The patient exercised for 9 minutes, achieving 10.1 METS. Her heart rate samuel from 75-144 representing 90% of maximum predicted age heart rate. Blood pressure samuel from 120/75-150/70. She had a mild twinge of chest pain at peak exercise but study was stopped due to overall fatigue. There were no significant exercise induced ST changes or arrhythmias. STUDY TECHNIQUE: For the stress portion of the study 32.0 mCi of technetium-99m Cardiolite IV was injected at 9:20 on 09/21/2017. Thirty minutes following the injection, imaging of the heart was performed in multiple projections. For the rest portion of the study 10.5 mCi of technetium-99m Cardiolite was injected IV at 7:30 a.m. One hour following the injection, imaging of the heart was performed in the same projections. FINDINGS: Rotating raw images were reviewed in detail. There was minimal vertical motion on both stress and rest. There was a lateral breast shadow and mild inferior gut uptake impacting removed from the inferior imaging border of the heart. There was no significant pathologic extracardiac uptake. The short axis, horizontal long axis, and vertical long axis images were reviewed in detail. There was normal myocardial perfusion with both stress and rest. LV size was normal with an end-diastolic volume of 49 mL. LV function was normal with a calculated ejection fraction of 75%. There were no regional wall motion abnormalities. IMPRESSION: 1. Negative myocardial perfusion study for Lexiscan-induced ischemia. 2. Negative exercise stress ECG for ischemia. 3. Above average functional capacity. The patient exercised 8 minutes achieving 10.1 METS. Normal hemodynamic response to exercise and no significant chest pain. 4. Normal left ventricular size and function, calculated ejection fraction of 35%. MTDD
== END | disposition home or self-care (01) ==
LOC: C.NUCL 07:00
PROVIDERS: ATTEND Internal Medicine Critical Care Medicine
DX: R06.02 Shortness of breath (principal); R07.89 Other chest pain